=== PATIENT | male | born 1970 | race Caucasian/White ===

== ENCOUNTER 2018-06-16 09:27 | Emergency (ER) | payer MEDICAID, SELFPAY ==
[2018-06-16 09:34] VITALS: BP 150/83; PULSE 89; RESP 20; TEMP 36.6; O2SAT 100
[2018-06-16 09:45] VITALS: RESP 20
--- NOTE | 2018-06-16 09:58 | W.ED.GENAD ---
Discharge Plan Disposition Patient Disposition: HOME Condition: Stable Discharge Details Chief Complaint: Anxiety Clinical Impression: Anxiety Primary Care Provider: Jose M Villa ED Provider: Gloria Peter Home Meds and New Rx's Prescriptions: Discontinued methylphenidate HCl [Ritalin] 20 MG tablet 20 mg PO BID Qty: 28 RF: 0 No Action prazosin 2 mg capsule 2 mg PO BID Qty: 60 RF: 1 methylphenidate HCl 20 mg tablet 20 mg PO .COMPLEX MDD 3 Qty: 90 RF: 0 Discharge Instructions Instructions: Anxiety (ED) Additional Instructions: Please return immediately to the emergency department if you develop any new or worsening symptoms or if you become otherwise concerned. It is extremely important that you make an appointment to be seen as soon as possible by your primary care doctor and also by Dr. Villa. Stand Alone Forms: Work Release Referrals: Jose M Villa MD [Primary Care Provider] - Discharge Data Discharge Date/Time-TO BE ENTERED AT DEPARTURE: 06/16/18 12:30 Medical Decision Making Ken French is a 3-year-old male history of anxiety presenting to the emergency department with worsening of anxiety in the past week after stopping Ritalin 09/16. On exam patient is well and nontoxic appearing and mildly anxious. His speech is mildly pressured. There is no psychosis. His exam is not consistent with maryse, metabolic disturbance, acute nonpsychiatric intracranial process, sepsis. Suspect acute on chronic anxiety. I discussed patient presentation with Dr. Villa, who requested patient be given short course of 1 mg Ativan 3 times daily and he will see patient as outpatient follow-up. He states that his office will call patient to schedule. I had a lengthy discussion with the patient regarding home care, and return to the emergency department precautions. Patient was discharged with clear plan for outpatient follow-up. Patient verbalized understanding the plan was amenable. All questions were answered. Medical Records Medical records reviewed: Yes I reviewed the patient's medical records. HPI General Mode of arrival: ambulatory. Date/Time Provider Initiated Documentation: 06/16/18 09:58. Limitations to Documentation: no limitations. Information obtained by: patient, RN notes reviewed and old records reviewed. HPI Narrative: Mikie French is a 48 y/o man with h/o anxiety presenting to the emergency department with worsening anxiety. Patient reports that he has had long-standing anxiety over the years. He was previously on Ritalin for this which he reports helped significantly to control his symptoms. Patient reports that in August 2017, his symptoms seemed very under control and he decided to discontinue Ritalin at that time. Patient reports that Dr. Villa his physician agreed with stopping Ritalin. Patient reports that he has been doing very well since that time until the last week or so. Patient reports that there have been several emotional situations for him that have occurred in the last few months, and he feels that his anxiety is ramping up. Patient reports that his anxiety feels similar to what he used 2 years ago, and he thinks that he is not able to control at this time without medication. Patient reports that he see Dr. Villa as an outpatient for this today, but was not able to be seen and thus presented to the emergency department. Patient denies hallucinations, difficulty sleeping, suicidal thoughts, or homicidal thoughts. He feels safe at home. He denies any pain or other somatic complaints. Related Data Home Medications Medication Instructions Recorded Confirmed methylphenidate 20 mg tablet 20 mg PO .COMPLEX #90 tab MDD 3 06/20/18 06/20/18 prazosin 2 mg capsule 2 mg PO BID #60 cap 06/20/18 06/20/18 Previous Rx's Medication Instructions Recorded methylphenidate 20 mg tablet 20 mg PO .COMPLEX #90 tab MDD 3 06/20/18 prazosin 2 mg capsule 2 mg PO BID #60 cap 06/20/18 Allergies Allergy/AdvReac Type Severity Reaction Status Date / Time No Known Allergies Allergy Unverified 06/17/18 12:38 General Stated Complaint: Anxiety ELADIA: 3 Review of Systems Review of Systems Constitutional: denies fevers Eyes: denies eye pain ENT: denies facial pain, dental pain, sore throat Cardiovascular: denies chest pain, edema, palpitations Respiratory: denies SOB, cough GI: denies abdominal pain, vomiting, diarrhea : denies flank pain MSK: denies back pain, neck pain, arthralgias, myalgias Skin: denies rash Neuro: denies headaches, numbness, weakness Psych: Denies hallucinations, SI, HI PFSH Family History Mother Personal history of malignant neoplasm Father No problems noted. Sister No problems noted. Brother No problems noted. Grandfather Personal history of malignant neoplasm Grandfather No problems noted. Grandmother No problems noted. Grandmother Personal history of malignant neoplasm Social History Smoking/Tobacco Use Status: Never Alcohol Intake: former Drug use: Occasionally Substance use type: marijuana Do you feel safe in your relationship?: Yes Exam Narrative Exam Narrative: Constitutional: well and [id number], pleasant, mildly pressured speech but otherwise conversing normally HENT: head atraumatic/normocephalic/normal inspection, mucous membranes moist Eyes: conjunctiva normal, sclera normal, pupils 3mm b/l Neck: no stridor, normal ROM, trachea midline Chest: normal inspection Resp: normal work of breathing, LCTAB Cardio: normal rate, normal rhythm, no murmur appreciated Back: normal inspection, no rash Skin: warm, dry, normal color, no rash Neuro: alert, not altered, grossly non-focal, normal tone Ext: no edema Psych: Somewhat anxious mood, normal affect, normal behavior, no apparent hallucinations, no SI Course Vital Signs Temperature 36.6 C 06/16/18 09:34 Pulse 89 06/16/18 09:34 Respiratory Rate 20 06/16/18 09:34 Blood Pressure 150/83 H 06/16/18 09:34 Pulse Oximetry 100 06/16/18 09:34 Temperature 36.6 C 06/16/18 09:34 Temperature Source Temporal Artery Scan 06/16/18 09:34 Pulse 89 06/16/18 09:34 Respiratory Rate 20 06/16/18 09:34 Respiratory Effort Non-Labored 06/16/18 09:42 Blood Pressure 150/83 H 06/16/18 09:34 Blood Pressure Position Sitting 06/16/18 09:34 Pulse Oximetry 100 06/16/18 09:34 Oxygen Delivery Method Room Air 06/16/18 09:34 Oxygen Flow Rate 0 06/16/18 09:34 Pain Level 0 06/16/18 09:34
--- NOTE | 2018-06-16 10:30 | ED.GENADUL_ITS ---
Discharge Plan Disposition Patient Disposition: HOME Condition: Stable Discharge Details Chief Complaint: Anxiety Clinical Impression: Anxiety Primary Care Provider: Jose M Villa ED Provider: Gloria Peter Home Meds and New Rx's Prescriptions: Discontinued methylphenidate HCl [Ritalin] 20 MG tablet 20 mg PO BID Qty: 28 RF: 0 No Action prazosin 2 mg capsule 2 mg PO BID Qty: 60 RF: 1 methylphenidate HCl 20 mg tablet 20 mg PO .COMPLEX MDD 3 Qty: 90 RF: 0 Discharge Instructions Instructions: Anxiety (ED) Additional Instructions: Please return immediately to the emergency department if you develop any new or worsening symptoms or if you become otherwise concerned. It is extremely important that you make an appointment to be seen as soon as possible by your primary care doctor and also by Dr. Villa. Stand Alone Forms: Work Release Referrals: Jose M Villa MD [Primary Care Provider] - Discharge Data Discharge Date/Time-TO BE ENTERED AT DEPARTURE: 06/16/18 12:30 Medical Decision Making Ken French is a 3-year-old male history of anxiety presenting to the emergency department with worsening of anxiety in the past week after stopping Ritalin 09/16. On exam patient is well and nontoxic appearing and mildly anxious. His speech is mildly pressured. There is no psychosis. His exam is not consistent with maryse, metabolic disturbance, acute nonpsychiatric intracranial process, sepsis. Suspect acute on chronic anxiety. I discussed patient presentation with Dr. Villa, who requested patient be given short course of 1 mg Ativan 3 times daily and he will see patient as outpatient follow-up. He states that his office will call patient to schedule. I had a lengthy discussion with the patient regarding home care, and return to the emergency department precautions. Patient was discharged with clear plan for outpatient follow-up. Patient verbalized understanding the plan was amenable. All questions were answered. Medical Records Medical records reviewed: Yes I reviewed the patient's medical records. HPI General Mode of arrival: ambulatory . Date/Time Provider Initiated Documentation: 06/16/18 09:58 . Limitations to Documentation: no limitations . Information obtained by: patient, RN notes reviewed and old records reviewed . HPI Narrative: Mikie French is a 48 y/o man with h/o anxiety presenting to the emergency department with worsening anxiety. Patient reports that he has had long-standing anxiety over the years. He was previously on Ritalin for this which he reports helped significantly to control his symptoms. Patient reports that in August 2017, his symptoms seemed very under control and he decided to discontinue Ritalin at that time. Patient reports that Dr. Villa his physician agreed with stopping Ritalin. Patient reports that he has been doing very well since that time until the last week or so. Patient reports that there have been several emotional situations for him that have occurred in the last few months, and he feels that his anxiety is ramping up. Patient reports that his anxiety feels similar to what he used 2 years ago, and he thinks that he is not able to control at this time without medication. Patient reports that he see Dr. Villa as an outpatient for this today, but was not able to be seen and thus presented to the emergency department. Patient denies hallucinations, difficulty sleeping, suicidal thoughts, or homicidal thoughts. He feels safe at home. He denies any pain or other somatic complaints. Related Data Home Medications Medication Instructions Recorded Confirmed methylphenidate 20 mg tablet 20 mg PO .COMPLEX #90 tab MDD 3 06/20/18 06/20/18 prazosin 2 mg capsule 2 mg PO BID #60 cap 06/20/18 06/20/18 Previous Rx's Medication Instructions Recorded methylphenidate 20 mg tablet 20 mg PO .COMPLEX #90 tab MDD 3 06/20/18 prazosin 2 mg capsule 2 mg PO BID #60 cap 06/20/18 Allergies Allergy/AdvReac Type Severity Reaction Status Date / Time No Known Allergies Allergy Unverified 06/17/18 12:38 General Stated Complaint: Anxiety ELADIA: 3 Review of Systems Review of Systems Constitutional: denies fevers Eyes: denies eye pain ENT: denies facial pain, dental pain, sore throat Cardiovascular: denies chest pain, edema, palpitations Respiratory: denies SOB, cough GI: denies abdominal pain, vomiting, diarrhea : denies flank pain MSK: denies back pain, neck pain, arthralgias, myalgias Skin: denies rash Neuro: denies headaches, numbness, weakness Psych: Denies hallucinations, SI, HI PFSH Family History Mother Personal history of malignant neoplasm Father No problems noted. Sister No problems noted. Brother No problems noted. Grandfather Personal history of malignant neoplasm Grandfather No problems noted. Grandmother No problems noted. Grandmother Personal history of malignant neoplasm Social History Smoking/Tobacco Use Status: Never Alcohol Intake: former Drug use: Occasionally Substance use type: marijuana Do you feel safe in your relationship?: Yes Exam Narrative Exam Narrative: Constitutional: well and [id number], pleasant, mildly pressured speech but otherwise conversing normally HENT: head atraumatic/normocephalic/normal inspection, mucous membranes moist Eyes: conjunctiva normal, sclera normal, pupils 3mm b/l Neck: no stridor, normal ROM, trachea midline Chest: normal inspection Resp: normal work of breathing, LCTAB Cardio: normal rate, normal rhythm, no murmur appreciated Back: normal inspection, no rash Skin: warm, dry, normal color, no rash Neuro: alert, not altered, grossly non-focal, normal tone Ext: no edema Psych: Somewhat anxious mood, normal affect, normal behavior, no apparent hallucinations, no SI Course Vital Signs Temperature 36.6 C 06/16/18 09:34 Pulse 89 06/16/18 09:34 Respiratory Rate 20 06/16/18 09:34 Blood Pressure 150/83 H 06/16/18 09:34 Pulse Oximetry 100 06/16/18 09:34 Temperature 36.6 C 06/16/18 09:34 Temperature Source Temporal Artery Scan 06/16/18 09:34 Pulse 89 06/16/18 09:34 Respiratory Rate 20 06/16/18 09:34 Respiratory Effort Non-Labored 06/16/18 09:42 Blood Pressure 150/83 H 06/16/18 09:34 Blood Pressure Position Sitting 06/16/18 09:34 Pulse Oximetry 100 06/16/18 09:34 Oxygen Delivery Method Room Air 06/16/18 09:34 Oxygen Flow Rate 0 06/16/18 09:34 Pain Level 0 06/16/18 09:34
== END 2018-06-16 12:30 | disposition home or self-care (01) ==
PROVIDERS: Emergency Provider Student in an Organized Health Care Education/Training Program; PCP Counselor Mental Health
DX: F41.9 Anxiety disorder, unspecified (principal)
CPT/HCPCS: 99281

== ENCOUNTER 2018-06-17 12:06 | Emergency (ER) | payer MEDICAID, SELFPAY ==
[2018-06-17 12:27] VITALS: BP 128/78; PULSE 72; RESP 18; TEMP 36.5; O2SAT 98
[2018-06-17 12:40] VITALS: RESP 18
[2018-06-17 12:59] VITALS: BP 128/78; PULSE 72; RESP 18; TEMP 36.5; O2SAT 98
--- NOTE | 2018-06-17 13:39 | ED.GENADUL_ITS ---
Discharge Plan Disposition Patient Disposition: HOME Condition: Stable Discharge Details Chief Complaint: Anxiety Clinical Impression: Anxiety Primary Care Provider: Jose M Villa ED Provider: Michael Simpson Home Meds and New Rx's Prescriptions: New methylphenidate HCl [Ritalin] 10 mg tablet 30 mg PO TID 7 Days Qty: 63 RF: 0 No Action lorazepam 1 mg tablet 1 mg PO BID PRN (Reason: anxiety) Qty: 6 RF: 0 Discharge Instructions Instructions: Anxiety (ED) Additional Instructions: 1. Drink plenty of fluids. 2. Continue all medications as prescribed. 3. Acetaminophen 1000mg every 4 hours (up to 5 time a day) and/or ibuprofen 600mg every 6 hours as needed for fever or pain. 4. Ritalin 20 - 30 mg 3 times a day with meals for 1 week until follow-up with Dr. Villa. Return to the Emergency Department (ED) if your condition worsens, does not improve as expected, or for ANY other concerns. Specifically, return if you have new or uncontrolled pain, worsening fever, difficulty breathing, vomiting, or are unable to drink fluids. Stand Alone Forms: Work Release Medical Decision Making 48-year-old gentleman with a long history of anxiety which he describes as having been well controlled with summer on Ritalin prescribed by his physician, Dr. Villa. He had elected to discontinue this medication and manage his anxiety with behavior modification. However, over the past weeks he has become more anxious, prompting her visit here yesterday and today. He has a appointment with his physician pending for next Saturday. Discussed his inability to perform ADLs and work over the past 2 days because of anxiety. Also recounts of good control of anxiety with his previously prescribed Ritalin. Nonfocal exam. Patient reiterates that he is not suicidal or homicidal when prompted. Discharged with a limited prescription for Ritalin for patient to resume his previously effective medication and then follow-up with his PCP as scheduled for reassessment and possible additional medication adjustment. Given a work note for his to missed work days. Pt evaluated immediately prior to discharge with improved symptoms, normal vital signs, and tolerating PO. The patient feels appropriate for discharge home. Discussed clinical/diagnostic findings. Discharged with a clear plan for outpatient follow up. Given usual and customary return instructions prior to discharge. Medical Records Medical records reviewed: Yes I reviewed the patient's medical records. HPI 48-year-old gent with a history of anxiety who has previously been on different medical regimens for this condition. Most recently, he was managed with Ritalin this summer and reports initially being on 35 mg 3 times a day as prescribed by his physician, Dr. Villa. Ultimately, he made the decision to discontinue his medication and trial behavioral modification to control his anxiety. This has been effective until recently when he has had increased anxiety. He was evaluated here yesterday for the same and discharged with a limited quantity of lorazepam. He notes having gotten more sleep last night after taking this medication at bedtime. However, he returns stating that he was unable to return to work today because of his uncontrolled anxiety. He has attempted to make an appointment with his primary care provider but is unable to do so until next Saturday. He recounts that his current symptoms are similar nature to those occurring in the past summer and which were well managed in conjunction with Dr. Villa by using Ritalin. He describes his anxiety as racing thoughts and inabi lity to concentrate.. He denies headache, palpitations, chest pain, dyspnea, abdominal pain, or other extremity symptoms. He does have recurrent diarrhea which has been pathognomonic for his anxiety episodes. He also denies suicidal homicidal ideation. General Date/Time Provider Initiated Documentation: 06/17/18 12:17 . Related Data Home Medications Medication Instructions Recorded Confirmed lorazepam 1 mg PO BID PRN #6 tab 06/16/18 06/17/18 methylphenidate HCl [Ritalin] 30 mg PO TID 7 Days #63 tab NS 06/17/18 Previous Rx's Medication Instructions Recorded lorazepam 1 mg PO BID PRN #6 tab 06/16/18 methylphenidate HCl [Ritalin] 30 mg PO TID 7 Days #63 tab NS 06/17/18 Allergies Allergy/AdvReac Type Severity Reaction Status Date / Time No Known Allergies Allergy Unverified 06/17/18 12:38 General Stated Complaint: Anxiety ELADIA: 4 Review of Systems Review of Systems All systems are reviewed and are unremarkable except as noted in HPI and below: CONSTITUTIONAL: no fevers/chills, no weakness or change in appetite; increased agitation/anxiety. EYES: no change in vision HEENT: no throat pain or difficulty swallowing; no neck pain CARDIOVASCULAR: no chest pain, palpitations, leg swelling, or diaphoresis RESPIRATORY: no cough, dyspnea, wheezing GASTROINTESTINAL: no abdominal pain, melena, nausea/emesis; recurrent nonbloody diarrhea GENITOURINARY: no dysuria, flank pain, MUSCULOSKELETAL: no pack pain, myalgias, arthralgias INTEGUMENTARY: no rash, no wounds NEUROLOGIC: no headache, focal weakness, difficulty with speech, numbness PSYCHIATRIC: no confusion, anxiety, difficulty concentrating; no suicidal or homicidal ideation HEME: no easy bruising or bleeding ALLERGIC: no urticaria PFSH Family History Mother Personal history of malignant neoplasm Father No problems noted. Sister No problems noted. Brother No problems noted. Grandfather Personal history of malignant neoplasm Grandfather No problems noted. Grandmother No problems noted. Grandmother Personal history of malignant neoplasm Social History Smoking/Tobacco Use Status: Never Alcohol Intake: former Drug use: Occasionally Substance use type: marijuana Do you feel safe in your relationship?: Yes Exam Narrative Exam Narrative: Nursing note and vital signs have been reviewed and noted. GENERAL: alert, active, well -hydrated, well-nourished; anxious and affect. HEENT: atraumatic/normocephalic, PERRLA, EOMI, conjunctiva clear, external ears/canals normal, nasal mucosa normal NECK: supple, full range of motion, no mass, normal lymphadenopathy, no thyromegaly CARDIOVASCULAR: RRR, no murmurs, nl pulses, no edema PULMONARY: nl effort, no audible wheezing or stridor, nl breath sounds with no focal deficit. no chest wall tenderness ABDOMEN: soft, non-tender, non-distended, no mass, no organomegaly EXTREMITY: normal muscle tone, all joints with FROM, no deformity or tenderness SKIN: no exanthem appreciated NEURO: gross motor exam normal, normal stance and gait PSYCH: alert and oriented, Course Vital Signs Temperature 97.7 F 06/17/18 12:27 Pulse 72 06/17/18 12:27 Respiratory Rate 18 06/17/18 12:27 Blood Pressure 128/78 06/17/18 12:27 Pulse Oximetry 98 06/17/18 12:27 Temperature 97.7 F 06/17/18 12:27 Temperature Source Temporal Artery Scan 06/17/18 12:27 Pulse 72 06/17/18 12:27 Respiratory Rate 18 06/17/18 12:40 Respiratory Effort Non-Labored 06/17/18 12:40 Respiratory Depth Normal 06/17/18 12:40 Respiratory Pattern Normal 06/17/18 12:40 Blood Pressure 128/78 06/17/18 12:27 Blood Pressure Position Sitting 06/17/18 12:27 Pulse Oximetry 98 06/17/18 12:27 Oxygen Delivery Method Room Air 06/17/18 12:27 Oxygen Flow Rate 0 06/17/18 12:27 Pain Level 0 06/17/18 12:27
--- NOTE | 2018-06-18 01:03 | NUR.NOTE ---
Nursing Note: 06/17/18 @ 0054- Received telephone call from patient reporting he felt Jittery and like I drank too much coffee. Pt was restarted on his Ritalin yesterday and had taken it with 4 cups of coffee and is now unable to sleep. Medication side effects were reviewed with patient, advised to avoid caffeine with this medication if he is unable to sleep, and to take his last dose earlier in the evening. Pt verbalized understanding and will follow up with Dr. Villa as scheduled.
== END 2018-06-17 13:00 | disposition home or self-care (01) ==
LOC: ER 12:48
PROVIDERS: Emergency Provider Emergency Medicine; PCP Counselor Mental Health
DX: F41.9 Anxiety disorder, unspecified (principal)
CPT/HCPCS: 99283

== ENCOUNTER 2021-02-24 11:28 | Emergency (ER) | payer MEDICAID, SELFPAY ==
[2021-02-24] VITALS (16 sets, daily range): BP systolic 140–162; BP diastolic 80–103; PULSE 79–97; RESP 11–31; TEMP 36.4; O2SAT 91–97
--- NOTE | 2021-02-24 11:43 | W.ED.GENAD ---
Discharge Plan Disposition Patient Disposition: HOME Condition: Stable Discharge Details Clinical Impression: Pneumonia Primary Care Provider: Yocasta Simeon ED Provider: You Cisneros Home Meds and New Rx's Prescriptions: New amoxicillin-pot clavulanate [Augmentin] 875-125 mg tablet 1 tab PO BID Qty: 20 RF: 0 Discharge Instructions Instructions: Pneumonia (ED) Additional Instructions: X-ray concerning for early pneumonia. Augmentin as directed. [id number] medications for symptomatic control. Your Covid test is pending and you should quarantine until the test has resulted negative, hopefully in the next 2-3 days. Please watch for new or worsening symptoms and return to the ER for any concerns. Otherwise I recommend contacting your primary care provider to discuss your ER visit and need for outpatient reevaluation Medical Decision Making 50-year-old gentleman, non-smoker, denies significant past medical history, presents with URI-like symptoms since last Saturday, needs a Covid test to return to work. Clinically he appears well, nontoxic, examination is consistent with viral URI. No clear source of bacterial infection. Will obtain a send out Covid swab and will also obtain a 1 view chest x-ray to further evaluate for potential pneumonia. Chest x-ray concerning for early pneumonia. Will treat with Augmentin. Covid swab pending, will await negative result and in the meantime will quarantine. Patient has no additional questions or concerns. Medical Records Medical records reviewed: Yes I reviewed the patient's medical records. Imaging Data Radiologic Study: Attestation: I personally reviewed and interpreted this imaging study as follows: Imaging: X-Ray Radiologist's impression: EXAM XR PORTABLE CHEST AP CLINICAL HISTORY cough TECHNIQUE 2D digital imaging was performed. COMPARISON [CR CHEST 2 VIEWS PA,LAT from 08/01/2011] [] FINDINGS LUNGS: Lungs not well inflated. [Increased densities left lung base which could represent infiltrate versus atelectasis.. [No pleural abnormality seen.] HEART: [Normal.] MEDIASTINUM: [Normal.] BONES: [Unremarkable.] IMPRESSION [Infiltrate versus atelectasis left lower lobe HPI General Mode of arrival: ambulatory. Date/Time Provider Initiated Documentation: 02/24/21 11:42. Limitations to Documentation: no limitations. Information obtained by: patient. HPI Narrative: This is a 50-year-old gentleman, past medical history hypertension, non-smoker, presenting to the ER reporting a head cold that began last Saturday, nasal congestion, bilateral ear pressure, primarily dry cough with occasional green sputum. He states he tried [id number] medication without symptomatic relief. He was sent home from work on Saturday and cannot return until he has a negative Covid test. He denies fever, headache, sore throat, chest pain, shortness of breath, abdominal pain, nausea, vomiting, diarrhea. He is not vaccinated against Covid. No known contacts. Related Data Home Medications Medication Instructions Recorded Confirmed amoxicillin-pot clavulanate 1 tab PO BID #20 tab 02/24/21 [Augmentin] Previous Rx's Medication Instructions Recorded amoxicillin-pot clavulanate 1 tab PO BID #20 tab 02/24/21 [Augmentin] Allergies Allergy/AdvReac Type Severity Reaction Status Date / Time No Known Allergies Allergy Verified 02/24/21 11:42 General Stated Complaint: RespSymp ELADIA: 3 Review of Systems Constitutional Constitutional: Denies fever(s) Cardiovascular Cardiovascular: Denies chest pain and Denies dyspnea Respiratory Respiratory: Reports cough, Denies dyspnea and Denies wheezing Gastrointestinal Gastrointestinal: Denies abdominal pain, Denies nausea and Denies vomiting Integumentary/Breasts Skin/Breast: Denies rash Allergic/Immunologic Allergic/Immunologic: Denies wheezing [facility], [facility] Active Problem List Dental abscess (Acute) History of alcohol dependence (Acute) Anxiety (Acute 10/14/14) Screening cholesterol level (Acute) Encounter for annual physical exam (Acute) Body mass index (BMI) greater than 30 in adult (Acute 09/13/15) Essential hypertension (Acute) Family History Mother Personal history of malignant neoplasm Grandfather Personal history of malignant neoplasm Grandmother Personal history of malignant neoplasm Social History Smoking/Tobacco Use Status: Never Smoking risk assessment performed?: Yes Alcohol Intake: former Drug use: Never Caregiver/Support person: No Household members: significant other and other Details: GIRLFRIEND Housing: apartment Communication Needs: None Do you need help understanding health information?: Never Pets and animals: Yes Pets and animals: dog(s) Sexually active: Yes Do you think of yourself as: straight/heterosexual Current gender identity: male What is your relationship status?: living with partner How often do you talk on the phone with friends or family?: twice per week How often do you get together with friends or relatives?: never Panel score (0-1 are the most socially isolated patients): 1 What type of physical activity do you participate in: walking Duration: 15-30 minutes/day Frequency: daily Cristina/Judaism: NONE Special cristina needs: No Seatbelt use: always Helmet use: No Drive intox or ride w/intox helper driver: No Do you feel safe in your relationship?: Yes Exam Const General: cooperative, healthy appearing, comfortable and no acute distress Orientation: alert and awake HENMN Head: normal to inspection, normocephalic and atraumatic Ears: external ears normal, EAC's normal and TM abnormal erythematous bilaterally (Minimal. No bulging or retraction) General nose exam: nasal discharge clear Mouth: moist mucous membranes Throat: posterior oropharynx normal Eyes General: appearance normal, both eyes and all related structures Conjunctivae: conjunctivae normal Neck Neck: normal visual inspection, full ROM, no lymphadenopathy, no meningeal signs, trachea midline, supple and nontender Resp Effort & Inspection: normal respiratory effort, able to speak in complete sentences and cough Quality of cough: dry (mild) Auscultation: diminished lung sounds on the left in the lower lung maier Cardio Rate: regular rate Rhythm: regular rhythm GI Palpation: soft and nontender Back/Spine/Pelvis Back: no CVA tenderness Skin General skin exam: no rashes or lesions noted Neuro General: patient alert, patient awake, moves all extremities and no focal motor deficits Cognition: normal cognition Speech: speech normal Gait: normal gait Sensory Exam: no sensory deficits noted Psych Appearance: grossly normal Mental Status: mental status grossly normal Course Vital Signs Vital signs: Vital Signs Temperature 36.4 C L 02/24/21 11:38 Pulse 93 H 02/24/21 11:38 Respiratory Rate 16 02/24/21 11:38 Blood Pressure 162/91 H 02/24/21 11:38 Pulse Oximetry 94 02/24/21 11:38 Temperature 36.4 C L 02/24/21 11:38 Temperature Source Skin 02/24/21 11:38 Pulse 93 H 02/24/21 11:38 Respiratory Rate 16 02/24/21 11:38 Respiratory Effort Non-Labored 02/24/21 11:38 Blood Pressure 162/91 H 02/24/21 11:38 Blood Pressure Position Supine 02/24/21 11:38 Pulse Oximetry 94 02/24/21 11:38 Oxygen Delivery Method Room Air 02/24/21 11:38 Oxygen Flow Rate 0 02/24/21 11:38 Pain Level 0 02/24/21 11:38
--- NOTE | 2021-02-24 13:20 | DI.RAD_ITS ---
Exam(s) XR PORTABLE CHEST AP EXAM: XR PORTABLE CHEST AP CLINICAL HISTORY: cough TECHNIQUE: 2D digital imaging was performed. COMPARISON: CR CHEST 2 VIEWS PA,LAT from 08/01/2011 FINDINGS: LUNGS: Lungs not well inflated. Increased densities left lung base which could represent infiltrate versus atelectasis.. No pleural abnormality seen. HEART: Normal. MEDIASTINUM: Normal. BONES: Unremarkable. IMPRESSION: Infiltrate versus atelectasis left lower lobe. DATA REPOSITORY: RADIATION DOSE DELIVERED:
[2021-02-26 07:44] LABS: COVID-19 RT-PCR UVMMC Result Positive (Negative)
--- NOTE | 2021-02-26 07:44 | NUR.NOTE ---
Nursing Note: 02/26/21 lab just called stating that the patient is positive ELOISEID. Lavonne Smith
--- NOTE | 2021-02-26 08:26 | W.ED.FU ---
Follow Up Plan: Called patient to discuss positive Covid test. Will provide paperwork for his workplace as well as pulse oximeter for home.
--- NOTE | 2021-02-26 11:37 | NUR.NOTE ---
Nursing Note: Referral faxed to [facility] for follow up of positive COVID in 7 to 10 days. Lavonne Smith
--- NOTE | 2021-03-01 15:07 | NUR.NOTE ---
Nursing Note: Called the patient and he stated that he had a pulse oximeter from his PCP and that he has an appt with PCP next week. They will write him a work note then. He stated he is all set. Lavonne Smith
== END 2021-02-24 13:57 | disposition home or self-care (01) ==
PROVIDERS: Emergency Provider Physician Assistant
DX: U07.1 COVID-19 (principal); J12.82 Pneumonia due to coronavirus disease 2019; R09.81 Nasal congestion; H92.03 Otalgia, bilateral; Z20.822 Contact with and (suspected) exposure to COVID-19
CPT/HCPCS: 99283; U0003; 71045

== ENCOUNTER 2021-11-06 06:40 | Emergency (ER) | payer MEDICAID, SELFPAY ==
[2021-11-06 06:47] VITALS: BP 135/85; PULSE 78; RESP 16; TEMP 36.5; O2SAT 98
--- NOTE | 2021-11-06 07:47 | ED.GENADUL_ITS ---
Discharge Plan Disposition Patient Disposition: HOME Condition: Improving Discharge Details Clinical Impression: Urticaria Primary Care Provider: Yocasta Simeon ED Provider: Reed Obrien Home Meds and New Rx's Prescriptions: New famotidine 20 mg tablet 20 mg PO BID PRNQty: 10 0RF Rx Instructions: prn rash/itching No Action metoprolol succinate 50 mg tablet extended release 24 hr 50 mg PO DAILY Qty: 90 3RF Discharge Instructions Instructions: Urticaria (ED) Additional Instructions: Please be seen by primary care physician for follow-up appointment. Please return to the emergency department he develop any worsening symptoms. Stand Alone Forms: Work Release Medical Decision Making 51-year-old male presents with urticarial rash to chest back arms legs and abdomen. No oropharyngeal involvement. Afebrile nontoxic. No pustules or vesicles no systemic signs of infection. Likely allergic reaction to environmental exposure. No evidence of anaphylaxis. Low suspicion for infectious etiology; trial of dexamethasone and famotidine close reassessment likely patient will be discharged home with medications and return precautions 8:34 patient resting comfortably no acute distress. given home care instructions and return precautions. HPI General Date/Time Provider Initiated Documentation: 11/06/21 07:38 . HPI Narrative: 51-year-old male presents with 2 days itching rash to trunk arms legs back and chest, recently returned from a camping trip with some friends, denies new foods new detergents or new environmental exposure. Denies respiratory symptoms fevers body aches or other signs of systemic illness. Took Benadryl yesterday with some relief of his leg rash. Related Data Home Medications Medication Instructions Recorded Confirmed metoprolol succinate 50 mg 50 mg PO DAILY #90 tabs 06/13/21 11/06/21 tablet,extended release 24 hr famotidine 20 mg tablet 20 mg PO BID PRN #10 tabs 11/06/21 Previous Rx's Medication Instructions Recorded metoprolol succinate 50 mg 50 mg PO DAILY #90 tabs 06/13/21 tablet,extended release 24 hr famotidine 20 mg tablet 20 mg PO BID PRN #10 tabs 11/06/21 Allergies Allergy/AdvReac Type Severity Reaction Status Date / Time No Known Allergies Allergy Verified 11/06/21 06:50 General Stated Complaint: RashLesion ELADIA: 3 Review of Systems Narrative: Review of Systems Constitutional: negative Eyes: negative ENT: negative Cardiovascular: negative Respiratory: negative Gastrointestinal: negative : negative Musculoskeletal: negative Skin: Rash Neurologic: negative Psych: negative PFSH All Active Problems (Updated 11/06/21 @ 08:36 by Reed Obrien MD) Urticaria (Acute) Pneumonia (Acute) Dental abscess (Acute) History of alcohol dependence (Acute) Anxiety (Acute 10/14/14) Screening cholesterol level (Acute) Encounter for annual physical exam (Acute) Body mass index (BMI) greater than 30 in adult (Acute 09/13/15) Essential hypertension (Acute) Active Problem List Pneumonia (Acute) Dental abscess (Acute) History of alcohol dependence (Acute) Anxiety (Acute 10/14/14) Screening cholesterol level (Acute) Encounter for annual physical exam (Acute) Body mass index (BMI) greater than 30 in adult (Acute 09/13/15) Essential hypertension (Acute) Family History Mother Personal history of malignant neoplasm Grandfather Personal history of malignant neoplasm Grandmother Personal history of malignant neoplasm Social History Smoking/Tobacco Use Status: Never Smoking risk assessment performed?: Yes Alcohol Intake: former Drug use: Never Caregiver/Support person: No Household members: significant other and other Details: GIRLFRIEND Housing: apartment Communication Needs: None Do you need help understanding health information?: Never Pets and animals: Yes Pets and animals: dog(s) Sexually active: Yes Do you think of yourself as: straight/heterosexual Current gender identity: male What is your relationship status?: living with partner How often do you talk on the phone with friends or family?: twice per week How often do you get together with friends or relatives?: never Panel score (0-1 are the most socially isolated patients): 1 What type of physical activity do you participate in: walking Duration: 15-30 minutes/day Frequency: daily Cristina/Hinduism: NONE Special cristina needs: No Seatbelt use: always Helmet use: No Drive intox or ride w/intox entry driver operator: No Do you feel safe in your relationship?: Yes Exam Narrative Exam Narrative: Physical Examination General: alert, awake, cooperative, resting comfortably, no acute distress HEENT: normocephalic, atraumatic; PERRL, EOM intact, conjunctiva normal; no nasal discharge; moist mucous membranes, oral and pharyngeal mucosa normal, tolerating secretions Neck: supple, trachea midline; full ROM Chest: normal to inspection Respiratory: normal respiratory effort, speaking in full sentences, clear to auscultation, no wheezing, rales or rhonchi Cardiac: regular rate, regular rhythm, S1S2 intact, no murmurs rubs or gallops GI: abdomen soft, non-tender, non-distended; no palpable mass or hepatosplenomegaly Skin: Urticarial rash involving chest back abdomen upper extremities and lower extremities; no facial swelling lip swelling or eye involvement Neuro: AAOx3, normal speech, moving all extremities Psych: Appropriate mood and affect Course Vital Signs Vital signs: Vital Signs Temperature 36.5 C 11/06/21 06:47 Pulse 78 11/06/21 06:47 Respiratory Rate 16 11/06/21 06:47 Blood Pressure 135/85 11/06/21 06:47 Pulse Oximetry 98 11/06/21 06:47 Temperature 36.5 C 11/06/21 06:47 Temperature Source Skin 11/06/21 06:47 Pulse 78 11/06/21 06:47 Respiratory Rate 16 11/06/21 06:47 Respiratory Effort 11/06/21 06:47 Blood Pressure 135/85 11/06/21 06:47 Blood Pressure Position Sitting 11/06/21 06:47 Pulse Oximetry 98 11/06/21 06:47 Pain Level 0 11/06/21 06:47
[2021-11-06] MEDS: Dexamethasone 10 MG/ML VIAL IM (07:54)
[2021-11-06] MEDS: Famotidine 20 MG TAB PO (07:54)
== END 2021-11-06 08:49 | disposition home or self-care (01) ==
PROVIDERS: Emergency Provider Emergency Medicine
DX: L50.9 Urticaria, unspecified (principal)
CPT/HCPCS: 96372; 99284; J1100

== ENCOUNTER 2022-02-15 08:56 | Emergency (ER) | payer MEDICAID, SELFPAY ==
[2022-02-15] VITALS (15 sets, daily range): BP systolic 124–147; BP diastolic 76–92; PULSE 66–84; RESP 11–24; TEMP 36.1; O2SAT 95–99
--- NOTE | 2022-02-15 09:15 | RT.EKG_ITS ---
APPROVED REPORT Exam: Resting ECG Reason for Exam: lightheaded Patient Location: E HR:69 bpm ECG Measurements Heart Rate 69 AXIS NC 149 P 27 QRSd 92 QRS 5 QT 370 T 14 QTc 398 Conclusion Sinus rhythm...normal P axis, V-rate 60- 99
[2022-02-15] MEDS: LORazepam 1 MG TAB PO (10:16)
[2022-02-15 10:18] LABS: Abs Immature Grans 0.02 10^3/uL (0.0-0.06); Absolute Basophil Count 0.04 10^3/uL (0.0-0.2); Absolute Eosinophil Count 0.05 10^3/uL (0.0-0.7); Absolute Lymphocyte Count 1.28 10^3/uL (1.2-3.4); Absolute Monocyte Count 0.83 10^3/uL (0.1-0.8); Absolute Neutrophil Count 5.37 10^3/uL (1.2-6.7); Basophils % 0.5; Eosinophils % 0.7; HCT 48.3 % (40.0-50.0); HGB 16.1 g/dL (13.5-17.5); Immature Grans % 0.3; Lymphocytes % 16.9; MCH 28.3 pg (27.0-33.0); MCHC 33.3 % (32.0-36.0); MCV 85 fL (80-95); MPV 9.6 fL (8.0-11.0); Monocytes % 10.9; Neutrophils % 70.7; Platelet Count 256 10^3/uL (130-400); RBC 5.69 10^6/uL (4.36-5.78); RDW 12.7 % (11.8-14.1); RDW-SD 39.2 fL; WBC 7.59 10^3/uL (4.4-10.8)
[2022-02-15 10:21] LABS: Bilirubin Negative (Negative); Blood Small (Negative); Clarity Clear (Clear); Glucose Negative (Negative); Ketones Negative (Negative); Leukocyte Esterase Negative (Negative); Nitrite Negative (Negative); Specific Gravity >= 1.030 (1.005-1.025); Urobilinogen 0.2 EU/dL (Up TO 0.2)
[2022-02-15 10:30] LABS: Bacteria Rare HPF (Negative); C & S Indicated? No; Casts Negative LPF (Negative); Crystals Negative HPF (Negative); Epithelial Cells Negative HPF (Negative); Mucus Negative (Negative); Other Cells Negative (Negative); RBC 0-2 HPF (0-2); WBC Negative HPF (0-5)
[2022-02-15 10:47] LABS: ALT 30 U/L (16-63); AST 13 U/L (15-37); Albumin 4.1 g/dL (3.4-5.0); Alkaline Phosphatase 58 U/L (46-116); Anion Gap 5.3 mmol/L (3-11); BUN 21 mg/dL (7-18); Bilirubin, Total 0.8 mg/dL (0.2-1.0); CO2 28.7 mmol/L (21.0-32.0); CREATININE 1.1 mg/dL (0.70-1.30); Calcium 9.1 mg/dL (8.5-10.1); Chloride 103 mmol/L (98-107); Estimated GFR 81.28 (mL/min/1.73m2); Glucose 100 mg/dL (74-106); Magnesium 1.9 mg/dL (1.8-2.4); Potassium 4.2 mmol/L (3.5-5.1); Sodium 137 mmol/L (136-145); TSH (W/Ref FT4) 1.58 uIU/mL (0.36-3.74); Total Protein 7.8 g/dL (6.4-8.2); Troponin I < 50 ng/L (<or=60)
--- NOTE | 2022-02-15 10:54 | W.ED.GENAD ---
Discharge Plan Disposition Patient Disposition: Home Condition: Stable Discharge Details Clinical Impression: Light-headedness Primary Care Provider: Rogelio Sanders ED Provider: Vera Norwood Home Meds and New Rx's Prescriptions: New lorazepam [Ativan] 1 mg tablet 1 mg PO DAILY PRNQty: 7 0RF Continued metoprolol succinate 50 mg tablet extended release 24 hr 50 mg PO DAILY Qty: 90 3RF famotidine 20 mg tablet 20 mg PO BID PRNQty: 10 0RF Rx Instructions: prn rash/itching Discharge Instructions Additional Instructions: Take Ativan as needed for anxiety, this medication is addictivecaution while taking it, you should not drive for 8 hours after taking this medication and it should only be used if you feel like you are having a panic attack Recommend having your doctor and regular counselor Should you have thoughts of wanting to harm yourself, or with any new or worsening complaints this return to the emergency department for reassessment Stand Alone Forms: Work Release Discharge Data Discharge Date/Time-TO BE ENTERED AT DEPARTURE: 02/15/22 11:10 Medical Decision Making Patient has EKG and diagnostic labs did not show evidence of acute abnormality, he is ambulatory with steady gait actually feeling marked improvement after [id number] He does have a counselor that he sees on a regular basis, he will talk to his doctor about anxiolysis At this time, I think patient stable for discharge home, I do not see an obvious medical etiology of patient's symptoms Sign Out No HPI General Date/Time Provider Initiated Documentation: 02/15/22 09:28. HPI Narrative: This 51-year-old male presents with reports of increased anxiety, and lightheadedness. He states he has been feeling really stressed at home secondary to family situations. He denies any suicidal or homicidal ideation. He denies any chest pain or shortness of breath. He denies any dizziness or weakness. Denies calf pain or swelling. Denies head injury. Denies any nausea or vomiting. Related Data Home Medications Medication Instructions Recorded Confirmed metoprolol succinate 50 mg 50 mg PO DAILY #90 tabs 06/13/21 02/15/22 tablet,extended release 24 hr famotidine 20 mg tablet 20 mg PO BID PRN #10 tabs 11/06/21 lorazepam 1 mg tablet (Ativan) 1 mg PO DAILY PRN #7 tabs 02/15/22 Previous Rx's Medication Instructions Recorded metoprolol succinate 50 mg 50 mg PO DAILY #90 tabs 06/13/21 tablet,extended release 24 hr famotidine 20 mg tablet 20 mg PO BID PRN #10 tabs 11/06/21 lorazepam 1 mg tablet (Ativan) 1 mg PO DAILY PRN #7 tabs 02/15/22 Allergies Allergy/AdvReac Type Severity Reaction Status Date / Time No Known Allergies Allergy Verified 02/15/22 09:08 General Stated Complaint: Anxiety ELADIA: 3 Review of Systems All systems reviewed & are unremarkable except as noted in HPI and below PFSH All Active Problems (Updated 02/15/22 @ 10:58 by GRIS Sanchez) Light-headedness (Acute) Pneumonia (Acute) Dental abscess (Acute) History of alcohol dependence (Acute) Anxiety (Acute 10/14/14) Screening cholesterol level (Acute) Encounter for annual physical exam (Acute) Body mass index (BMI) greater than 30 in adult (Acute 09/13/15) Essential hypertension (Acute) Active Problem List Pneumonia (Acute) Dental abscess (Acute) History of alcohol dependence (Acute) Anxiety (Acute 10/14/14) Screening cholesterol level (Acute) Encounter for annual physical exam (Acute) Body mass index (BMI) greater than 30 in adult (Acute 09/13/15) Essential hypertension (Acute) Family History Mother Personal history of malignant neoplasm Grandfather Personal history of malignant neoplasm Grandmother Personal history of malignant neoplasm Social History Smoking/Tobacco Use Status: Never Smoking risk assessment performed?: Yes Alcohol Intake: former Drug use: Never Substance use type: does not use Caregiver/Support person: No Household members: significant other and other Details: GIRLFRIEND Housing: apartment Communication Needs: None Do you need help understanding health information?: Never Pets and animals: Yes Pets and animals: dog(s) Sexually active: Yes Do you think of yourself as: straight/heterosexual Current gender identity: male What is your relationship status?: living with partner How often do you talk on the phone with friends or family?: twice per week How often do you get together with friends or relatives?: never Panel score (0-1 are the most socially isolated patients): 1 What type of physical activity do you participate in: walking Duration: 15-30 minutes/day Frequency: daily Cristina/Christianity: NONE Special cristina needs: No Seatbelt use: always Helmet use: No Drive intox or ride w/intox ready mix truck driver: No Do you feel safe at home: Yes Do you feel safe in your relationship?: Yes Exam Const General: cooperative, comfortable and no acute distress HENMT Head: normal to inspection Other: moist mucous membranes Eyes Pupils: PERRL Resp Effort & Inspection: normal respiratory effort Auscultation: clear to auscultation bilaterally Cardio Rate: regular rate Rhythm: regular rhythm GI Inspection: normal to inspection Skin General skin exam: no rashes or lesions noted Neuro General: patient alert and patient oriented x3 Cranial Nerves: CN's II-XI intact bilaterally Cognition: normal cognition Speech: speech normal Gait: normal gait Extrem Other: Distal pulses intact, no calf swelling or tenderness Course Vital Signs Vital signs: Vital Signs Temperature 36.1 C L 02/15/22 09:04 Pulse 82 02/15/22 09:04 Respiratory Rate 18 02/15/22 09:04 Blood Pressure 147/92 H 02/15/22 09:04 Pulse Oximetry 95 02/15/22 09:04 Temperature 36.1 C L 02/15/22 09:04 Temperature Source Tympanic 02/15/22 09:04 Pulse 82 02/15/22 09:04 Respiratory Rate 18 02/15/22 09:10 Respiratory Effort Non-Labored 02/15/22 09:10 Respiratory Depth Normal 02/15/22 09:10 Respiratory Pattern Normal 02/15/22 09:10 Blood Pressure 147/92 H 02/15/22 09:04 Blood Pressure Position Sitting 02/15/22 09:04 Pulse Oximetry 95 02/15/22 09:04 Oxygen Delivery Method Room Air 02/15/22 09:04 Oxygen Flow Rate 0 02/15/22 09:04 Lab/Test Results Lab/Test Results: Laboratory Tests Range/Units 02/15/22 02/15/22 02/15/22 10:00 10:07 10:07 WBC (4.4-10.8) 10^3/uL 7.59 RBC (4.36-5.78) 10^6/uL 5.69 Hgb (13.5-17.5) g/dL 16.1 Hct (40.0-50.0) % 48.3 MCV (80-95) fL 85 MCH (27.0-33.0) pg 28.3 MCHC (32.0-36.0) % 33.3 RDW (11.8-14.1) % 12.7 Plt Count (130-400) 10^3/uL 256 MPV (8.0-11.0) fL 9.6 Immature Gran % 0.3 Neutrophils % 70.7 Lymphocytes % 16.9 Monocytes % 10.9 Eosinophils % 0.7 Basophils % 0.5 Nucleated RBC % (0.0-0.3) % 0.0 Absolute Neutrophils (1.2-6.7) 10^3/uL 5.37 Absolute Lymphocytes (1.2-3.4) 10^3/uL 1.28 Absolute Monocytes (0.1-0.8) 10^3/uL 0.83 H Absolute Eosinophils (0.0-0.7) 10^3/uL 0.05 Absolute Basophils (0.0-0.2) 10^3/uL 0.04 Sodium (136-145) mmol/L 137 Potassium (3.5-5.1) mmol/L 4.2 Chloride (98-107) mmol/L 103 Carbon Dioxide (21.0-32.0) mmol/L 28.7 Anion Gap (3-11) mmol/L 5.3 BUN (7-18) mg/dL 21 H Creatinine (0.70-1.30) mg/dL 1.1 Est GFR (CKD-EPI 2020) (mL/min/1.73m2) 81.28 Glucose (74-106) mg/dL 100 Calcium (8.5-10.1) mg/dL 9.1 Magnesium (1.8-2.4) mg/dL 1.9 Total Bilirubin (0.2-1.0) mg/dL 0.8 AST (15-37) U/L 13 L ALT (16-63) U/L 30 Alkaline Phosphatase (46-116) U/L 58 Troponin I (<or=60) ng/L < 50 Total Protein (6.4-8.2) g/dL 7.8 Albumin (3.4-5.0) g/dL 4.1 TSH (0.36-3.74) uIU/mL 1.58 Urine Color (Yellow) Yellow Urine Clarity (Clear) Clear Urine pH (5-8) 6.0 Ur Specific Alexis (1.005-1.025) >= 1.030 H Urine Protein (Negative) mg/dL Negative Urine Ketones (Negative) mg/dL Negative Urine Blood (Negative) Small H Urine Nitrite (Negative) Negative Urine Bilirubin (Negative) Negative Urine Urobilinogen (Up TO 0.2) EU/dL 0.2 Ur Leukocyte Esterase (Negative) Negative Urine RBC (0-2) HPF 0-2 Urine WBC (0-5) HPF Negative Ur Epithelial Cells (Negative) HPF Negative Urine Crystals (Negative) HPF Negative Urine Bacteria (Negative) HPF Rare Urine Casts (Negative) LPF Negative Urine Mucus (Negative) Negative Urine Other (Negative) Negative Ur Culture Indicated? No Urine Glucose (Negative) mg/dL Negative
== END 2022-02-15 11:10 | disposition home or self-care (01) ==
PROVIDERS: Emergency Provider Physician Assistant; PCP Nurse Practitioner Family
DX: R42 Dizziness and giddiness (principal); F41.9 Anxiety disorder, unspecified
CPT/HCPCS: 36415; 80053; 93005; 99283; 81003; 81015; 83735; 84443; 84484; 85025; 93010; 99284

== ENCOUNTER 2022-06-02 09:25 | Emergency (ER) | payer MEDICAID, SELFPAY ==
[2022-06-02 09:29] VITALS: BP 160/100; PULSE 96; TEMP 36.1; O2SAT 98
--- NOTE | 2022-06-02 09:38 | ED.GENADUL_ITS ---
Discharge Plan Disposition Patient Disposition: Home Discharge Details Clinical Impression: Infected dental caries Primary Care Provider: Rogelio Sanders ED Provider: Pantera Lynn Home Meds and New Rx's Prescriptions: New penicillin V potassium 500 mg tablet 500 mg PO QID 7 Days Qty: 28 0RF Continued metoprolol succinate 50 mg tablet extended release 24 hr 50 mg PO DAILY Qty: 90 3RF Discontinued famotidine 20 mg tablet 20 mg PO BID PRNQty: 10 0RF Rx Instructions: prn rash/itching lorazepam [Ativan] 1 mg tablet 1 mg PO DAILY PRNQty: 7 0RF Discharge Instructions Instructions: Dental Caries (ED) Additional Instructions: Please continue to monitor your symptoms and use inyv-irq-gywulvo medication as needed for pain and discomfort. Please take antibiotic as prescribed and until fully gone. If you develop any new or significant worsening of symptoms return to the emergency department for reassessment otherwise it is very important that you follow-up with dental provider for definitive care of your dental complaint. Referrals: Rogelio Sanders, [employer] [Primary Care Provider] - (If you are unable to follow-up with dental provider please follow-up with primary care for reassessment and to ensure the infection is improving.) Discharge Data Discharge Date/Time-TO BE ENTERED AT DEPARTURE: 06/02/22 09:56 Medical Decision Making Patient presenting to the emergency department for chief complaint of facial swelling. Patient states that he has a broken tooth in the left upper jaw that has been broken for years. Did state some pain over the past week which resolved but then today woke up and noted some facial swelling. Patient denies any difficulty breathing swallowing, fever chills, or other symptoms. Exam consistent with infected dental caries . no signs of deep neck space infection ( Retropharyngeal abscess, Ar's angina, Parapharyngeal space infection, Peritonsillar Abscess (FRYER OPERATOR)) or Epiglottitis. Pt non toxic and stable. Patient placed upon penicillin and recommended follow-up with dental provider. After discussion of diagnosis and plan of care patient has no further needs, questions, or concerns and states clear understanding to return to the emergency department for any worsening symptoms. This documentation was generated using [employer] dictation system, please disregard any oddities of phrase or misspellings. HPI General Mode of arrival: ambulatory . Date/Time Provider Initiated Documentation: 06/02/22 09:28 . Limitations to Documentation: no limitations . Information obtained by: patient and RN notes reviewed . History of Present Illness 52 year old M presents to the emergency department with the chief complaint of Facial swelling, described as mild, and is localized to the face and mouth. Patient reports no radiation. Patient started experiencing this week(s) (1) No relieving factors improve symptom(s), No exacerbating factors reported . Patient notes no other symptoms.. Patient did receive the following treatments prior to arrival, NSAID Related Data Home Medications Medication Instructions Recorded Confirmed metoprolol succinate 50 mg 50 mg PO DAILY #90 tabs 06/13/21 06/02/22 tablet,extended release 24 hr penicillin V potassium 500 mg 500 mg PO QID 7 days #28 tabs 06/02/22 tablet Previous Rx's Medication Instructions Recorded metoprolol succinate 50 mg 50 mg PO DAILY #90 tabs 06/13/21 tablet,extended release 24 hr penicillin V potassium 500 mg 500 mg PO QID 7 days #28 tabs 06/02/22 tablet Allergies Allergy/AdvReac Type Severity Reaction Status Date / Time No Known Allergies Allergy Verified 02/15/22 09:08 General Stated Complaint: DentalOral ELADIA: 4 Review of Systems Constitutional Constitutional: Denies chills and Denies fever(s) ENT Ears, Nose, Mouth, and Throat: Reports as per HPI, Denies change in voice, Reports dental pain, Denies dysphagia, Denies throat swelling and Denies tongue swelling Cardiovascular Cardiovascular: Denies chest pain and Denies dyspnea Respiratory Respiratory: Denies dyspnea, Denies stridor and Denies wheezing Gastrointestinal Gastrointestinal: Denies abdominal pain, Denies dysphagia, Denies nausea and Denies vomiting Integumentary/Breasts Skin/Breast: Denies rash Allergic/Immunologic Allergic/Immunologic: Denies throat swelling, Denies tongue swelling and Denies wheezing PFSH All Active Problems Infected dental caries (Acute) Pneumonia (Acute) Dental abscess (Acute) History of alcohol dependence (Acute) Anxiety (Acute 10/14/14) Screening cholesterol level (Acute) Encounter for annual physical exam (Acute) Body mass index (BMI) greater than 30 in adult (Acute 09/13/15) Essential hypertension (Acute) Family History Mother Personal history of malignant neoplasm Grandfather Personal history of malignant neoplasm Grandmother Personal history of malignant neoplasm Social History Smoking/Tobacco Use Status: Never Smoking risk assessment performed?: Yes Alcohol Intake: former Drug use: Never Substance use type: does not use Caregiver/Support person: No Household members: significant other and other Details: GIRLFRIEND Housing: apartment Communication Needs: None Do you need help understanding health information?: Never Pets and animals: Yes Pets and animals: dog(s) Sexually active: Yes Do you think of yourself as: straight/heterosexual Current gender identity: male What is your relationship status?: living with partner How often do you talk on the phone with friends or family?: twice per week How often do you get together with friends or relatives?: never Panel score (0-1 are the most socially isolated patients): 1 What type of physical activity do you participate in: walking Duration: 15-30 minutes/day Frequency: daily Cristina/Restorationist: NONE Special cristina needs: No Seatbelt use: always Helmet use: No Drive intox or ride w/intox garbage collector driver: No Do you feel safe at home: Yes Do you feel safe in your relationship?: Yes Exam Const General: cooperative Orientation: alert, awake and oriented x3 Limitations: mental status not altered [facility] [place] Head: normal to inspection, normocephalic and atraumatic Ears: hearing grossly normal bilaterally, normal mastoids bilaterally and no periauricular adenopathy General nose exam: external nose normal Mouth: oropharynx normal, no drooling, no muffled voice, normal tongue and no trismus Teeth and gingiva: caries, poor dentition and other (Fractured tooth #13 broken to gumline) Throat: posterior oropharynx normal, tonsils normal and uvula midline Eyes General: appearance normal, both eyes and all related structures Pupils: PERRL Neck Neck: normal visual inspection, full ROM, no lymphadenopathy, no meningeal signs, trachea midline, supple, no anterior neck swelling and no midline deformity Resp Effort & Inspection: normal respiratory effort and able to speak in complete sentences Course Vital Signs Vital signs: Vital Signs Temperature 36.1 C L 06/02/22 09:29 Pulse 96 H 06/02/22 09:29 Blood Pressure 160/100 H 06/02/22 09:29 Pulse Oximetry 98 06/02/22 09:29 Temperature 36.1 C L 06/02/22 09:29 Temperature Source Tympanic 06/02/22 09:29 Pulse 96 H 06/02/22 09:29 Respiratory Effort Normal, Non-Labored 06/02/22 09:34 Blood Pressure 160/100 H 06/02/22 09:29 Blood Pressure Position Sitting 06/02/22 09:29 Pulse Oximetry 98 06/02/22 09:29 Oxygen Delivery Method Room Air 06/02/22 09:29 Oxygen Flow Rate 0 06/02/22 09:29
[2022-06-02] MEDS: Penicillin V POTASSIUM 500 MG TAB PO (09:48)
[2022-06-02 09:55] VITALS: BP 145/100; PULSE 101; RESP 18; O2SAT 97
== END 2022-06-02 09:56 | disposition home or self-care (01) ==
PROVIDERS: Emergency Provider Nurse Practitioner Family; PCP Nurse Practitioner Family
DX: K04.7 Periapical abscess without sinus (principal)
CPT/HCPCS: 99283

== ENCOUNTER 2023-09-17 09:36 | Emergency (ER) | payer SELFPAY ==
[2023-09-17 09:43] VITALS: BP 129/93; PULSE 77; RESP 18; TEMP 36.5; O2SAT 100
[2023-09-17 09:46] VITALS: BP 129/93; PULSE 77; RESP 18; TEMP 36.5; O2SAT 100
--- NOTE | 2023-09-17 10:00 | W.ED.GENAD ---
Discharge Plan Disposition Patient Disposition: Home Condition: Stable Discharge Details Clinical Impression: Pain, dental Primary Care Provider: Rogelio Sanders ED Provider: Collin Dempsey Home Meds and New Rx's Prescriptions: New chlorhexidine gluconate 0.12 % mouthwash 15 ml mucous membrane BID Qty: 1893 0RF Rx Instructions: swish and spit with 15mL by mouth twice per day amoxicillin-pot clavulanate 875-125 mg tablet 1 tab PO BID 10 Days Qty: 20 0RF ketorolac 10 mg tablet 10 mg PO QID 5 Days Qty: 20 0RF Rx Instructions: maximum total duration of 5 days from all oral, intranasal, or parenteral formulations Continued metoprolol succinate 50 mg tablet extended release 24 hr 50 mg PO DAILY Qty: 90 4RF mirtazapine 7.5 mg tablet 7.5 mg PO QHS Qty: 90 0RF Discharge Instructions Instructions: Ketorolac (Systemic), Dental Pain, Amoxicillin and Clavulanate, Oxycodone, Chlorhexidine Gluconate (Oral) Additional Instructions: You were seen in the emergency department for your dental pain. We attempted a buccal dental block but this is not uncommon block to perform in the emergency department I think you should follow-up with a dentist urgently. Please use therapeutic dosing of Tylenol (acetamenophen) & Advil (ibuprofen) in an alternating fashion as follows: Take 1000mg of Tylenol every 6 hours without missing doses- that is 4 times per day. [place] in between the Tylenol dosings, take 400-600mg of Advil also on a 6 hour schedule, that is also 4 times per day. PLEASE USE THE Rx'd KETORLAC in place of Ibuprofen/Advil for the first 5 days, then use ibuprofen/advil once you've run out of ketorlac. The daily maximum dosing of Tylenol is 4000mg, and the daily maximum dosing of Advil is 2400mg. This is safe to do for weeks. Please note that some common cold medications & prescription pain medications may contain acetamenophen and you need to read OTC drug labels and factor that in to maximum daily dosings. Use rbak-xol-plixfup topical Anbesol which is similar to the viscous lidocaine you received here to paint the area of pain with the numbing agent. Continue salt water gargles with warm salt water 3 times per day, use the prescription chlorhexidine antiseptic mouth rinse prescribed. Research homeopathic remedies for dental pain like clove's for dental pain. Take the prescribed antibiotics as the inside of your cheek was beginning to become swollen this could be an early dental infection. Use the provided 4 tablets of oxycodone only for breakthrough pain if the Tylenol and ibuprofen/ketorlac is not cutting it. Please call any and all dentists in the area and try to get an emergency appointment, have the office staff please speak to a dentist to convey the urgency of the matter. Please return to the emergency department for any severe increase in jaw pain, inability to open or close your jaw, muffled vocal changes, neck swelling, inability to tolerate p.o. intake. Referrals: [facility] [Provider Group] Rogelio Sanders NP [Primary Care Provider] - Discharge Data Discharge Date/Time-TO BE ENTERED AT DEPARTURE: 09/17/23 11:46 HPI General Date/Time Provider Initiated Documentation: 09/17/23 09:48. HPI Narrative: 53 year-old male presents to ED today by POV/ambulating with a chief complaint of dental pain, R lower- states a filling may have fallen out with onset last night and today. Quality described as throbbing excruciating pain, no radiation to fever, trismus, vocal changes, dysphagia, facial swelling/redness, neck swelling, purulent drainage into the mouth. Severity is described as severe. Palliating factors include nothing specific- has not taken any OTC analgesics. Provoking factors include nothing specific- diffuse poor dentition. Events leading up to the incident/Associated Symptoms: Patient has called a dentist office who could not see him. Patient not anticoagulated. Related Data Home Medications Medication Instructions Recorded Confirmed metoprolol succinate 50 mg 50 mg PO DAILY #90 tabs 07/18/22 09/17/23 tablet,extended release 24 hr mirtazapine 7.5 mg tablet 7.5 mg PO QHS #90 tabs 07/18/22 09/17/23 amoxicillin 875 mg-potassium 1 tab PO BID 10 days #20 tabs 09/17/23 clavulanate 125 mg tablet chlorhexidine gluconate 0.12 % 15 ml mucous membrane BID #1,893 mL 09/17/23 mouthwash ketorolac 10 mg tablet 10 mg PO QID 5 days #20 tabs 09/17/23 Previous Rx's Medication Instructions Recorded metoprolol succinate 50 mg 50 mg PO DAILY #90 tabs 07/18/22 tablet,extended release 24 hr mirtazapine 7.5 mg tablet 7.5 mg PO QHS #90 tabs 07/18/22 amoxicillin 875 mg-potassium 1 tab PO BID 10 days #20 tabs 09/17/23 clavulanate 125 mg tablet chlorhexidine gluconate 0.12 % 15 ml mucous membrane BID #1,893 mL 09/17/23 mouthwash ketorolac 10 mg tablet 10 mg PO QID 5 days #20 tabs 09/17/23 Allergies Allergy/AdvReac Type Severity Reaction Status Date / Time No Known Allergies Allergy Verified 09/17/23 09:45 General Stated Complaint: DentalOral ELADIA: 4 Review of Systems All systems reviewed & are unremarkable except as noted in HPI and below Exam Narrative Exam Narrative: GENERAL APPEARANCE: Well-nourished, non-toxic, awake and alert, atraumatic, no acute distress. SKIN: Warm, pink, dry, intact, without rashes/lesions/ulcerations. HEAD: Normocephalic, atraumatic, normal hair distribution for gender/age. EYES: Normal conjunctiva, no exudates on lids/lashes. ENT: Nares patent, no circumoral cyanosis, mild R cheek swelling in buccal mucosa without facial erythema, uvula midline, no tonsillar swelling, diffuse dental caries and decay, no gingival abscess R lower molars- severe caries to all R lower molars NECK: Supple, trachea midline, painless cervical ROM. LUNGS/CHEST: Non-labored respirations, normal A/P diameter, symmetrical expansion, no chest wall deformity HEART (CV/PV): No peripheral edema, no JVD. ABDOMEN: Soft, non-distended, no guarding. MSK: Normal ROM, no swelling/deformity to bilateral UEs or LEs, moving all extremities without weakness, no cyanosis, spine midline without tenderness, normal curvature. NEURO: Mental Status AAOx4 - alert to person, place, time, events No facial droop, no forehead involvement. Motor: No focal weakness - strength 5/5 in bilateral UEs and LEs, proximal and distal, symmetric. Sensory: sensation intact to light touch globally. Gait normal: patient ambulated without ataxia into ED room. PSYCH: euthymic, cooperative, pleasant, appropriate speech Course Vital Signs Vital signs: Vital Signs Temperature 36.5 C 09/17/23 09:43 Pulse 77 09/17/23 09:43 Respiratory Rate 18 09/17/23 09:43 Blood Pressure 129/93 H 09/17/23 09:43 Pulse Oximetry 100 09/17/23 09:43 Temperature 36.5 C 09/17/23 09:46 Temperature Source Oral 09/17/23 09:46 Pulse 77 09/17/23 09:46 Respiratory Rate 18 09/17/23 09:46 Respiratory Effort Normal, Non-Labored 09/17/23 09:46 Blood Pressure 129/93 H 09/17/23 09:46 Blood Pressure Position Sitting 09/17/23 09:46 Pulse Oximetry 100 09/17/23 09:46 Oxygen Delivery Method Room Air 09/17/23 09:46 Oxygen Flow Rate 0 09/17/23 09:46 Procedures Nerve Block Nerve Block 1: Time out performed: No Local Anesthetic: Bupivicaine 0.5% Amount of anesthesia used (mL): 0.5 Side: right Intraoral Nerve Block: other (buccal) Procedure Successful: No Patient Tolerated Procedure: well and no complications Complications: pain with procedure and inadequate anesthesia Medical Decision Making This dictation utilizes [id number] dictation software and may contain unedited grammatical errors. 53 year-old male presents to ED today by POV/ambulating with a chief complaint of dental pain, R lower- states a filling may have fallen out with onset last night and today. Quality described as throbbing excruciating pain, no radiation to fever, trismus, vocal changes, dysphagia, facial swelling/redness, neck swelling, purulent drainage into the mouth. Severity is described as severe. Palliating factors include nothing specific- has not taken any OTC analgesics. Provoking factors include nothing specific- diffuse poor dentition. Events leading up to the incident/Associated Symptoms: Patient has called a dentist office who could not see him. Patients' medical history: noncontributory. Family and social history: noncontributory. Pertinent exam findings / vital signs include ENT: Nares patent, no circumoral cyanosis, mild R cheek swelling in buccal mucosa without facial erythema, uvula midline, no tonsillar swelling, diffuse dental caries and decay, no gingival abscess R lower molars- severe caries to all R lower molars. Differential / pathologies of concern include dental infection, toothache, abscess unlikely, facial cellulitis. Diagnostic studies of: -none. Interventions of: -R buccal block given 0.5mL bupivicaine- not effective, Rx of Augmentin, chlorhexidine, toradol, recommend f/u with dentist. ED Course/Assessment/Plan: 53-year-old male presents with severe right lower dental pain with no OTC analgesics attempted, he has called the dentist office but they could not see him. I did provide him with significant Tylenol and Toradol as well as oxycodone to go, prescription for Augmentin, Toradol, chlorhexidine, recommend homeopathic treatment improvements. Patient is buccal block was not effective I did advise him that he should follow-up with a dentist, strict return criteria for vocal changes, trismus, increasing facial swelling and redness despite treatment, recommend therapeutic APAP/NSAIDs, salt water gargles and other homeopathic dental pain remedies. Findings not consistent with gingival abscess, peritonsillar abscess, trismus, vocal changes. Disposition of pain, dental. Patient verbalized understanding of the plan and return to ED criteria and engaged in shared decision making. Medical Records Medical records reviewed: Yes I reviewed the patient's medical records. Quality:SDOH Health Related Social Needs: No Data to Display PFSH All Active Problems (Updated 09/17/23 @ 11:13 by GRIS Salmon) Pain, dental (Acute) Pneumonia (Acute) Dental abscess (Acute) History of alcohol dependence (Acute) Anxiety (Acute 10/14/14) Screening cholesterol level (Acute) Encounter for annual physical exam (Acute) Body mass index (BMI) greater than 30 in adult (Acute 09/13/15) Essential hypertension (Acute) Family History Mother Personal history of malignant neoplasm Grandfather Personal history of malignant neoplasm Grandmother Personal history of malignant neoplasm Social History Smoking/Tobacco Use Status: Never Smoking risk assessment performed?: Yes Alcohol Intake: former Drug use: Never Substance use type: does not use Caregiver/Support person: No Household members: significant other and other Details: GIRLFRIEND Housing: apartment Communication Needs: None Do you need help understanding health information?: Never Pets and animals: Yes Pets and animals: dog(s) Sexually active: Yes Do you think of yourself as: straight/heterosexual Current gender identity: male What is your relationship status?: living with partner How often do you talk on the phone with friends or family?: twice per week How often do you get together with friends or relatives?: never Panel score (0-1 are the most socially isolated patients): 1 What type of physical activity do you participate in: walking Duration: 15-30 minutes/day Frequency: daily Cristina/Islam: NONE Special cristina needs: No Seatbelt use: always Helmet use: No Drive intox or ride w/intox 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
[2023-09-17] MEDS: Ketorolac 10 MG TAB PO (10:19)
[2023-09-17] MEDS: Lidocaine 2% Viscous 1 ML Solution 15 ML PO (10:19)
[2023-09-17] MEDS: Acetaminophen 500 MG TAB 1000 MG PO (10:19)
== END 2023-09-17 11:46 | disposition home or self-care (01) ==
LOC: ER 11:13
PROVIDERS: Emergency Provider Physician Assistant; PCP Nurse Practitioner Family
DX: K08.89 Other specified disorders of teeth and supporting structures (principal)
CPT/HCPCS: 64400; 99283; J0665

== ENCOUNTER 2025-03-08 22:35 | Emergency (ER) | payer OTHER, SELFPAY ==
[2025-03-08 22:39] VITALS: BP 158/94; PULSE 98; RESP 18; TEMP 36.1; O2SAT 98
--- NOTE | 2025-03-08 22:41 | ED.GENADUL_ITS ---
Discharge Plan Disposition Patient Disposition: Home Condition: Good Discharge Details Clinical Impression: Finger laceration Primary Care Provider: Rogelio Sanders ED Provider: Lawrence Dave Discharge Instructions Instructions: Laceration Repair With Glue ED Additional Instructions: You were seen in the ED for a laceration to your right index finger which was repaired with adhesive. Try not to bend the finger for the next few days to allow for healing. Do not scrub the area and do not apply any antibiotic ointment. You are due for a tetanus update but have declined for the time being. Return to ED if there is any sign of infection with increasing pain, redness, drainage or swelling. Stand Alone Forms: Portal Information HPI General Mode of arrival: ambulatory . Date/Time Provider Initiated Documentation: 03/08/25 22:39 . Limitations to Documentation: no limitations . Information obtained by: patient and RN notes reviewed . HPI Narrative: Patient presented to ED with right index finger laceration. Patient sustained injury while trying to cut plastic to make a final. Sustained injury to the dorsal part of his finger. Bleeding is controlled. No numbness and normal range of motion. Patient reports if it had not happened at work he was taking care of it himself. Denies any other injury. Does not know his last tetanus. Does not want to have stitches unless absolutely necessary. Related Data Allergies Allergy/AdvReac Type Severity Reaction Status Date / Time No Known Allergies Allergy Verified 03/08/25 22:41 General ELADIA: 4 Exam Narrative Exam Narrative: Const: WDWN male in NAD. VS per triage. HEENT: NC/AT. Normal facial exam. Neck: Supple. Trachea midline. Lungs: Normal respiratory effort. Neuro: A+O x 3. Normal speech, mentation. Cranial nerves II - XII grossly intact. No gross motor or sensory deficit. Ext: Right index finger with 0.5 cm superficial laceration over the dorsal PIP area. Normal strength without pain against force with extension. Sensation in tact. Procedure Laceration Laceration 1: Date of Procedure: 03/07/25 Time of procedure: 23:30 Provider that performed the procedure: Lawrence Dave Standard Time Out Performed: Yes Patient Consented: Verbally Site: hand Side (If applicable): right Description: linear Depth: simple, single layer Pre-repair:: irrigated extensively and deep structures intact Skin layer closed with: other (adhesive) Medical Decision Making Patient is [id number] male presenting to the ED with a right dorsal index finger laceration. This is superficial and with his finger extended is completely closed and approximated. Does open up with flexion of finger. Injury is in the area of the PIP joint. Extensor tendons intact with full strength against force and no pain during extension of the finger. Patient is very reluctant to have stitches placed. Because it is so well-approximated with his finger extended adhesive was used and finger then placed in the splint to prevent flexion to give laceration time to heal. Patient is due for tetanus with last recorded shot being in 2013. We discussed risk and benefit. He is declining updating immunizations at this time. He is encouraged to wear the splint at least for the next few days. Instructed to not scrub or wash the area to avoid use of antibiotic ointment. Return precautions provided. Medical Records Medical records reviewed: Yes I reviewed the patient's medical records. Medical records narrative: immunizations PFSH All Active Problems (Updated 03/08/25 @ 23:17 by Lawrence Dave MD) Finger laceration (Acute) Pneumonia (Acute) Dental abscess (Acute) History of alcohol dependence (Acute) Anxiety (Acute 10/14/14) Screening cholesterol level (Acute) Encounter for annual physical exam (Acute) Body mass index (BMI) greater than 30 in adult (Acute 09/13/15) Essential hypertension (Acute) Family History Mother Personal history of malignant neoplasm Grandfather Personal history of malignant neoplasm Grandmother Personal history of malignant neoplasm Social History Smoking/Tobacco Use Status: Never Smoking risk assessment performed?: Yes Alcohol Intake: former Drug use: Never Substance use type: does not use Caregiver/Support person: No Household members: significant other and other Details: GIRLFRIEND Housing: apartment Communication Needs: None Do you need help understanding health information?: Never Pets and animals: Yes Pets and animals: dog(s) Sexually active: Yes Do you think of yourself as: straight/heterosexual Current gender identity: male What is your relationship status?: living with partner How often do you talk on the phone with friends or family?: twice per week How often do you get together with friends or relatives?: never Panel score (0-1 are the most socially isolated patients): 1 What type of physical activity do you participate in: walking Duration: 15-30 minutes/day Frequency: daily Cristina/Advent: NONE Special cristina needs: No Seatbelt use: always Helmet use: No Drive intox or ride w/intox train driver: No Do you feel safe at home: Yes Do you feel safe in your relationship?: Yes
== END 2025-03-08 23:30 | disposition home or self-care (01) ==
LOC: ER 03-09 06:32
PROVIDERS: Emergency Provider Emergency Medicine; PCP Nurse Practitioner Family
DX: S61.210A Laceration without foreign body of right index finger without damage to nail, initial encounter (principal); X58.XXXA Exposure to other specified factors, initial encounter
CPT/HCPCS: 12001; 29130; 99283 ×2